=== PATIENT | female | born 1950 | race Caucasian/White ===

== ENCOUNTER → 2024-10-02 15:03 | Outpatient (REF) | payer OTHER, SELFPAY ==
[2024-10-02 15:53] LABS: INR 2.05; PT 23.3 Sec (11.4-14.6)
== END ==
LOC: REG 15:03
PROVIDERS: ATTENDING PHYSICIAN Internal Medicine Cardiovascular Disease
DX: I63.9 Cerebral infarction, unspecified (principal); Z79.01 Long term (current) use of anticoagulants
CPT/HCPCS: 36415; 85610

== ENCOUNTER → 2024-10-30 11:45 | Outpatient (REF) | payer OTHER, SELFPAY ==
[2024-10-30 12:26] LABS: INR 1.89; PT 21.8 Sec (11.4-14.6)
== END ==
LOC: REG 11:45
PROVIDERS: ATTENDING PHYSICIAN Internal Medicine Cardiovascular Disease
DX: I63.9 Cerebral infarction, unspecified (principal); Z79.01 Long term (current) use of anticoagulants
CPT/HCPCS: 36415; 85610

== ENCOUNTER → 2024-11-07 12:58 | Outpatient (REF) | payer OTHER, SELFPAY ==
[2024-11-07 14:04] LABS: INR 2.21; PT 24.6 Sec (11.4-14.6)
== END ==
LOC: REG 12:58
PROVIDERS: ATTENDING PHYSICIAN Internal Medicine Cardiovascular Disease
DX: I63.9 Cerebral infarction, unspecified (principal); Z79.01 Long term (current) use of anticoagulants
CPT/HCPCS: 36415; 85610